=== PATIENT | female | born 1935 | race Hispanic/Latino ===

== ENCOUNTER 2019-12-22 14:41 | Emergency (ER) | payer OTHER, MEDICARE ==
[2019-12-22 15:26] LABS: BASOPHILS % (AUTO) 0.2 % (0.0-5.0); EOSINOPHILS % (AUTO) 0.2 % (0.0-8.0); HEMATOCRIT 38.9 % (36-48); LYMPHOCYTES % (AUTO) 19.4 % (21.0-51.0); MEAN CORPUSCULAR HEMOGLOBIN 29.5 pg (27.0-33.0); MEAN CORPUSCULAR HGB CONC 33.4 g/dL (32.0-36.0); MEAN CORPUSCULAR VOLUME 88.4 fL (79-99); MONOCYTES % (AUTO) 8.3 % (3.0-13.0); NEUTROPHILS % (AUTO) 71.7 % (40.0-77.0); PLATELET COUNT (AUTO) 232 K/uL (130-400); WHITE BLOOD COUNT (AUTO) 4.7 K/uL (4.8-10.8)
[2019-12-22 15:32] LABS: APPEARANCE,URINE Turbid (CLEAR); BILIRUBIN,URINE Small (NEGATIVE); COLOR,URINE Dark Yellow (YELLOW); GLUCOSE, URINE (UA) Negative (NEGATIVE); KETONES,URINE 15 mg/dL (NEGATIVE); LEUKOCYTE ESTERASE ,URINE Large (NEGATIVE); NITRATE,URINE Negative (NEGATIVE); OCCULT BLOOD,URINE Negative (NEGATIVE); PROTEIN,URINE Trace mg/dL (NEGATIVE)
[2019-12-22 15:37] LABS: CREATININE 1.1 mg/dL (0.5-1.5); POTASSIUM 4.6 mmol/L (3.5-5.1)
[2019-12-22 15:42] LABS: ALBUMIN 3.4 g/dL (3.5-5.0); BILIRUBIN,TOTAL 1.2 mg/dL (0.2-1.0); TOTAL PROTEIN, SERUM 7.9 g/dL (6.0-8.3)
[2019-12-22 15:54] LABS: BACTERIA,URINE Moderate /HPF (None Seen); MUCUS,URINE Moderate LPF (None Seen); SQUAMOUS EPITHELIAL CELL,UR Many /HPF (0-2)
[2019-12-22] MEDS ORDERED: SODIUM CHLORIDE 0.9% 500ML 500 ML IV ONE (16:00)
[2019-12-22] MEDS ORDERED: CEFTRIAXONE SODIUM 1 GM ONE (16:00)
== END 2019-12-22 16:53 | disposition home or self-care (01) ==
LOC: EDH 14:41
DX: N39.0 Urinary tract infection, site not specified (principal)
CPT/HCPCS: 36415; 80053; 81001; 85025; 87088; 87804 ×2; 93005; 96374; 99284; J0696; J7040